=== PATIENT | male | born 2000 | race Two or more races ===

== ENCOUNTER 2022-09-06 03:09 | Emergency (ER) | payer OTHER ==
[~2022-09-06] VITALS: Ht 177.8 cm; Wt 79.8 kg
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
[2022-09-06] MEDS ORDERED: TDAP [DIPH/PERTUSSIS/TET] 0.5 ML VIAL IM ONE ×2 (03:50→04:00)
--- NOTE | 2022-09-06 04:00 | NUR ---
Pt received 0.5mg IM off TDAP as ordered. Pt care continue as awaits X-Ray results.
[2022-09-06 05:09] VITALS: BP 132/87
== END 2022-09-06 05:10 | disposition home or self-care (01) ==
LOC: ER 03:12
DX: S30.811A Abrasion of abdominal wall, initial encounter (principal); S80.212A Abrasion, left knee, initial encounter; S80.211A Abrasion, right knee, initial encounter; M79.641 Pain in right hand; M79.642 Pain in left hand; V29.99XA Rider (driver) (passenger) of other motorcycle injured in unspecified traffic accident, initial encounter; Y93.89 Activity, other specified; Y92.89 Other specified places as the place of occurrence of the external cause; Y99.8 Other external cause status
CPT/HCPCS: 73120-TC; 90715